=== PATIENT | female | born 1975 | race African-American/Black ===

== ENCOUNTER 2017-04-17 11:56 | Emergency (ER) | payer OTHER ==
[2017-04-17 12:07] VITALS: RESP 18
[2017-04-17] MEDS ORDERED: IPRATROPIUM/ALBUTEROL 3 ML DEYVIAL IH ONE (12:39)
[2017-04-17 12:48] LABS: % IMMATURE GRANULYOCYTES 0.9 % (0.0-1.1); ABSOLUTE IMMATURE GRANULOCYTES 0.13 10^3/uL (0.00-0.10); ADD DIFF? NO; ADD MORPH? NO; ADD SCAN? NO; ATYPICAL LYMPHOCYTE FLAG 0 (0-99); FRAGMENT RBC FLAG 0 (0-99); HEMOGLOBIN 15.7 g/dL (12.6-16.3); LEFT SHIFT FLG 0 (0-99); LIPEMIA HEMOLYSIS FLAG 90 (0-99); MEAN CELL HEMOGLOBIN CONCENTR. 34.1 g/dL (32.4-36.7); MEAN CELL VOLUME 93.7 fL (81.5-99.8); MEAN PLATELET VOLUME 9.2 fL (8.7-11.7); PLATELET CLUMPS FLAG 0 (0-99); PLATELET COUNT 365 10^3/uL (150-400); RED BLOOD CELL COUNT 4.91 10^6/uL (4.18-5.33); RED CELL DISTRIBUTION WIDTH 12.1 % (11.5-15.2)
[2017-04-17 13:03] LABS: ANION GAP 15 mEq/L (8-16); CALCIUM 9.7 mg/dL (8.5-10.4); CARBON DIOXIDE 18 mEq/l (22-31); CHLORIDE 109 mEq/L (97-110); CREATININE 0.7 mg/dL (0.6-1.0); GLOMERULAR FILTRATION RATE > 60; GLUCOSE 165 mg/dL (70-100); POTASSIUM 4.5 mEq/L (3.5-5.2); SODIUM 142 mEq/L (134-144)
--- NOTE | 2017-04-17 13:04 | EDPHY ---
H & P Stated Complaint: Sob, "lungs on fire" dry cough x 2 days Time Seen by Provider: 04/17/17 12:21 HPI/ROS: Chief Complaint: Cough, shortness of breath HPI: 41-year-old woman with a history of asthma complaining of dry cough the last couple weeks with significantly worsening over the last 2 days. She has been using her albuterol inhaler without a spacer without any relief. Is not on any other asthma medications usually. No fevers or chills. Has a burning sensation when she inhales but otherwise no chest pain. No nausea or vomiting. No recent travel. No leg pain or swelling. ROS: 10 point Review of Systems is negative except as noted in the HPI. PMH: Asthma, diabetes Social History: No smoking, no alcohol, no recreational drug use Family History: non-contributory Physical Exam: Gen: Awake, Alert, No Distress, obese HEENT: Nose: no rhinorrhea Eyes: PERRLA, EOMI Mouth: Moist mucosa Neck: Supple, no JVD Chest: nontender, breath sounds significantly diminished with expiration. No focal rales or rhonchi. Heart: S1, S2 normal, no murmur Abd: Soft, non-tender, no guarding Back: no CVA tenderness, no midline tenderness Ext: no edema, non-tender Skin: no rash Neuro: CN II-XII intact, Sensation grossly intact, Strength 5/5 in bilateral upper and lower extremities - Personal History LMP (Females 10-55): 15-21 Days Ago Current Tetanus/Diphtheria Vaccine: Unsure Current Tetanus Diphtheria and Acellular Pertussis (TDAP): Unsure - Medical/Surgical History Hx Asthma: Yes Hx Chronic Respiratory Disease: No Hx Diabetes: Yes Hx Cardiac Disease: No Hx Renal Disease: No Hx Cirrhosis: No Hx Alcoholism: No Hx HIV/AIDS: No Hx Splenectomy or Spleen Trauma: No Other PMH: NIDDM, depression, asthma - Social History Smoking Status: Never smoked Constitutional: Initial Vital Signs Temperature (C) 37.0 C 04/17/17 12:04 Heart Rate 71 04/17/17 12:04 Respiratory Rate 18 04/17/17 12:04 Blood Pressure 139/85 H 04/17/17 12:04 O2 Sat (%) 98 04/17/17 12:04 O2 Delivery Mode Room Air Allergies/Adverse Reactions: azithromycin Allergy (Verified 04/17/17 12:02) metaxalone [From Skelaxin] Allergy (Verified 04/17/17 12:02) Home Medications: Medication Instructions Recorded Byetta 04/17/17 Glyburide 04/17/17 Lovastatin 04/17/17 Zoloft 100mg (*) 04/17/17 predniSONE 60 mg PO DAILY #9 tab 04/17/17 Medical Decision Making ED Course/Re-evaluation: Patient is improved after a DuoNeb treatment. D-dimer is negative. CBC is normal. He has not have any clinical findings suggestive of pneumonia. Will discharge her with using her albuterol MDI with spacer. Will also start her on a short course of prednisone. She will follow up with primary care physician 2- 3 days for further evaluation. - Data Points Laboratory Results: Laboratory Results 04/17/17 12:37 04/17/17 12:37 04/17/17 04/17/17 04/17/17 12:37 12:37 12:37 WBC 15.24 10^3/uL H 10^3/uL (3.80-9.50) RBC 4.91 10^6/uL 10^6/uL (4.18-5.33) Hgb 15.7 g/dL g/dL (12.6-16.3) Hct 46.0 % % (38.0-47.0) MCV 93.7 fL fL (81.5-99.8) MCH 32.0 pg pg (27.9-34.1) MCHC 34.1 g/dL g/dL (32.4-36.7) RDW 12.1 % % (11.5-15.2) Plt Count 365 10^3/uL 10^3/uL (150-400) MPV 9.2 fL fL (8.7-11.7) Neut % (Auto) 68.3 % % (39.3-74.2) Lymph % (Auto) 22.9 % % (15.0-45.0) [place] % (Auto) 5.0 % % (4.5-13.0) Eos % (Auto) 2.2 % % (0.6-7.6) Baso % (Auto) 0.7 % % (0.3-1.7) Nucleat RBC Rel Count 0.0 % % (0.0-0.2) Absolute Neuts (auto) 10.41 10^3/uL H 10^3/uL (1.70-6.50) Absolute Lymphs (auto) 3.49 10^3/uL H 10^3/uL (1.00-3.00) Absolute Monos (auto) 0.76 10^3/uL 10^3/uL (0.30-0.80) Absolute Eos (auto) 0.34 10^3/uL 10^3/uL (0.03-0.40) Absolute Basos (auto) 0.11 10^3/uL H 10^3/uL (0.02-0.10) Absolute Nucleated RBC 0.00 10^3/uL 10^3/uL (0-0.01) Immature Gran % 0.9 % % (0.0-1.1) Immature Gran # 0.13 10^3/uL H 10^3/uL (0.00-0.10) D-Dimer 0.29 ug/mLFEU ug/mLFEU (0.00-0.50) Sodium 142 mEq/L mEq/L (134-144) Potassium 4.5 mEq/L mEq/L (3.5-5.2) Chloride 109 mEq/L mEq/L (97-110) Carbon Dioxide 18 mEq/l L mEq/l (22-31) Anion Gap 15 mEq/L mEq/L (8-16) BUN 15 mg/dL mg/dL (7-23) Creatinine 0.7 mg/dL mg/dL (0.6-1.0) Estimated GFR > 60 Glucose 165 mg/dL H mg/dL (70-100) Calcium 9.7 mg/dL mg/dL (8.5-10.4) Medications Given: Discontinued Medications Albuterol/Ipratropium (Duoneb) 3 ml IH EDNOW ONE Stop: 04/17/17 12:40 Last Admin: 04/17/17 12:47 Dose: 3 ml Departure - Departure Disposition: Home, Routine, Self-Care Clinical Impression: Exacerbation of asthma Condition: Good Instructions: Asthma (ED) Additional Instructions: Always use a spacer when you are using your meter dose inhaler. Take her full course of antibiotics. Follow up with your primary care physician in 3-4 days for further evaluation. Return to the emergency department for increasing chest pain, shortness of breath, fevers, chills, or any other concerns. Referrals: Zhane Beckman MD [Primary Care Provider] - As per Instructions Prescriptions: predniSONE 60 mg PO DAILY #9 tab
[2017-04-17 14:03] VITALS: BP 133/75; PULSE 87; TEMP 98.1; O2SAT 97
== END 2017-04-17 14:03 | disposition home or self-care (01) ==
DX: J45.901 Unspecified asthma with (acute) exacerbation (principal); E11.9 Type 2 diabetes mellitus without complications

== ENCOUNTER → 2017-04-26 | Outpatient (CLI) | payer OTHER | LOC: FIMAGING 13:37 | PROVIDERS: ATTEND Family Medicine | DX: J40 Bronchitis, not specified as acute or chronic (principal); J45.901 Unspecified asthma with (acute) exacerbation ==

== ENCOUNTER → 2018-03-05 | Outpatient (CLI) | payer OTHER | LOC: FIMAGING 07:57 | PROVIDERS: ATTEND Family Medicine | DX: Z12.31 Encounter for screening mammogram for malignant neoplasm of breast (principal); Z80.3 Family history of malignant neoplasm of breast ==

== ENCOUNTER 2018-04-28 21:41 | Emergency (ER) | payer OTHER ==
--- NOTE | 2018-04-28 22:06 | EDPHY ---
H & P Smoking Status: Never smoked Time Seen by Provider: 04/28/18 22:06 HPI/ROS: Chief complaint. Abdominal pain HPI. Patient is 42-year-old female presents emergency department with nausea vomiting diarrhea and left lower quadrant abdominal pain. Symptoms began at 11: 00 a.m. This morning with abdominal pain and diarrhea. She then had chills and vomiting. The left side abdominal pain is lower to mid abdomen. No radiation. It is sharp and worse with movement. Overall she feels achy. She had fever to 100 degrees. No chest pain or shortness of breath. Decreased urination but otherwise no dysuria. She has had sick contacts at a family gathering yesterday. ROS 10 systems were reviewed and negative with the exception of the elements mentioned in the history of present illness (Lobo Curiel) Past Medical/Surgical History: Endometriosis and fibroid surgery in 2008, [id number] diabetes, depression, asthma (Lobo Curiel) Social History: Single, nonsmoker, no alcohol (Lobo Curiel) Physical Exam: General Appearance: Alert well-developed female moderate distress vital signs show temp 37.2 degrees with heart rate 112. Blood pressure stable Eyes: Pupils equal and round no pallor or injection. ENT, Mouth: Mucous membranes are moist. Respiratory: There are no retractions, lungs are clear to auscultation. Cardiovascular: Regular rate and rhythm. Gastrointestinal: Abdomen is soft with tenderness in the left lower and left mid quadrant to palpation. No right-sided tenderness. No masses Neurological: Awake and alert, sensory and motor exams grossly normal. Skin: Warm and dry, no rashes. Musculoskeletal: Neck is supple nontender. Extremities symmetrical, full range of motion. Psychiatric: Patient is oriented X 3, there is no agitation. (Lobo Curiel) Constitutional: Initial Vital Signs Temperature (C) 37.2 C 04/28/18 21:49 Heart Rate 112 H 04/28/18 21:49 Respiratory Rate 18 04/28/18 21:49 Blood Pressure 138/85 H 04/28/18 21:49 O2 Sat (%) 96 04/28/18 21:49 O2 Delivery Mode Nasal Cannula O2 (L/minute) 2 Allergies/Adverse Reactions: azithromycin Allergy (Verified 04/30/18 17:56) metaxalone [From Skelaxin] Allergy (Verified 04/30/18 17:56) Home Medications: Medication Instructions Recorded Byetta 04/17/17 Glyburide 04/17/17 Lovastatin 04/17/17 Zoloft 100mg (*) 04/17/17 Jardiance 04/28/18 Ondansetron Odt [Zofran Odt] 8 mg PO Q4PRN PRN #8 tab 04/30/18 Medical Decision Making Procedures: IV normal saline with 1 L given. Zofran for nausea. Dilaudid for pain (Lobo Curiel) ED Course/Re-evaluation: Accepted patient in sign-out from Dr. Curiel pending CT scan. Introduced myself to patient prior to transport to CT scanner. Pain well controlled, nausea gone. Plan for repeat L of normal saline awaiting CT results. Discussed CT scan results with Dr. Partida. He states nothing noted to explain left-sided pain. There is some fatty infiltration of the liver. However no diverticuli, no diverticulitis, normal appendix. No bowel obstruction. On re- evaluation patient resting comfortably, receiving 2nd L of IV fluids. Heart rate below 100. Plan is to discharge home with antiemetics and close primary care follow-up. Return precautions discussed. (Aretha Nettles) Point of care testing shows normal creatinine. Blood sugar is 185 Point of care testing CBC shows a 17,000 white blood cell count with hematocrit 46 (Lobo Curiel) Differential Diagnosis: Differential diagnosis includes but is not limited to irritable bowel syndrome, gastroenteritis, diverticulitis, appendicitis, urinary tract infection, . After evaluation unclear etiology of patient's symptoms today and may represent irritable bowel syndrome or food-borne illness. No high risk features including hypotension, high fever, gastrointestinal bleeding. No specific abnormalities found on CT scan. Patient responded to treatment in the emergency department and comfortable with continued outpatient care. Stable for discharge. (Aretha Nettles) Care Turn Over: care to Dr. Nettles at 11 pm (Lobo Curiel) - Data Points Medications Given: Discontinued Medications Hydrocodone Bitart/Acetaminophen ([place] 5/325mg Prepack#6) 1 btl TAKEHOME EDNOW ONE Stop: 04/29/18 00:32 Last Admin: 04/29/18 01:01 Dose: 1 btl Hydromorphone HCl (Dilaudid) 0.5 mg IVP EDNOW ONE Stop: 04/28/18 22:23 Last Admin: 04/28/18 22:26 Dose: 0.5 mg Hydromorphone HCl (Dilaudid) 0.5 mg IVP EDNOW ONE Stop: 04/29/18 00:33 Last Admin: 04/29/18 00:57 Dose: 0.5 mg Sodium Chloride (Ns) 1,000 mls @ 0 mls/hr IV ONCE ONE PRN Reason: Wide Open Stop: 04/28/18 22:09 Last Admin: 04/28/18 22:10 Dose: 1,000 mls Sodium Chloride (Ns) 1,000 mls @ 0 mls/hr IV ONCE ONE; Wide Open PRN Reason: Protocol Stop: 04/28/18 23:28 Last Admin: 04/28/18 23:48 Dose: 1,000 mls Ondansetron HCl (Zofran) 4 mg IVP EDNOW ONE Stop: 04/28/18 22:10 Last Admin: 04/28/18 22:14 Dose: 4 mg Ondansetron HCl (Zofran Odt 4 Mg Prepack#2) 1 btl TAKEHOME EDNOW ONE Stop: 04/29/18 00:19 Last Admin: 04/29/18 01:00 Dose: 1 btl Point of Care Test Results: CBC CBC Collection Date 04/28/18 CBC Collection Time 21:55 WBC 17 RBC 5 HGB 16 HCT 46 PLT 339 Neut # 16.5 Neut 97.1 LYMPH # 0.3 LYMPH 1.6 Other WBC # 0.2 Other WBC 1.3 MCV 92 Chemistry 04/28/18 22:10 POC Sodium 136 mEq/L mEq/L (135-145) POC Potassium 4.3 mEq/L mEq/L (3.3-5.0) POC Chloride 111.0 mEq/L H mEq/L (97-110) POC Total CO2 18 mEq/L L mEq/L (22-31) POC BUN 13 mg/dL mg/dL (7-23) POC Creatinine 0.8 mg/dL mg/dL (0.6-1.0) POC Glucose 185 mg/dL H mg/dL (70-100) POC Calcium 9.6 mg/dL mg/dL (8.5-10.4) Urine Collection Date 04/28/18 Collection Time 11:05 HCG Results Negative Urine Dip Collection Date 04/28/18 Collection Time 23:05 Specific [place] (1.002-1.030) 1.030 PH (5.0-7.5) 5.5 Leukocytes (Negative) Negative Nitrites (Negative) Negative Protein (Negative) Negative Glucose (Negative) 2+ Ketones (Negative) 3+ Urobilnogen (0.2-1.0 EU) 0.2 Bilirubin (Negative) Negative Blood (Negative) 2+ Departure - Departure Disposition: Home, Routine, Self-Care Clinical Impression: Abdominal pain, Irritable bowel syndrome Condition: Good Instructions: Acute Abdominal Pain (ED) Additional Instructions: Rest over the next 2 days, use nausea medications as prescribed from the emergency department. Push fluids. Return to the emergency department or see your primary care physician if he develops high fevers, are unable to keep fluids or food down. If you have worsening diarrhea or bloody diarrhea return for re-evaluation. Referrals: Patient,NotPresent [Primary Care Provider] - As per Instructions
[2018-04-28] MEDS ORDERED: NS 1,000 ML IV ONE ×2 (22:08→23:27)
[2018-04-28] MEDS ORDERED: ONDANSETRON 4 MG/2 ML VIAL IVP ONE (22:09)
[2018-04-28] MEDS ORDERED: HYDROmorphONE/DILAUDID 2 MG/ML INJ IVP ONE (22:22)
[2018-04-28] MEDS ORDERED: IOPAMIDOL (ISOVUE-300) 100 ML BTL ONE (22:43)
[2018-04-29] MEDS ORDERED: ONDANSETRON 4MG PREPACK#2 BTL TAKEHOME ONE (00:18)
[2018-04-29] MEDS ORDERED: HYDROCOD/APAP 5/325 PREPACK#6 BTL TAKEHOME ONE (00:31)
[2018-04-29] MEDS ORDERED: HYDROmorphONE/DILAUDID 2 MG/ML INJ IVP ONE (00:32)
[2018-04-29 01:04] VITALS: BP 117/79
== END 2018-04-29 01:34 | disposition home or self-care (01) ==
LOC: CED 21:41
DX: R10.32 Left lower quadrant pain (principal); K58.0 Irritable bowel syndrome with diarrhea; E86.9 Volume depletion, unspecified; E10.9 Type 1 diabetes mellitus without complications; F32.9 Major depressive disorder, single episode, unspecified; J45.909 Unspecified asthma, uncomplicated
CPT/HCPCS: 74177-PO; 80048-PO; 96374; J1170; J2405; Q9967

== ENCOUNTER 2018-04-30 17:51 | Emergency (ER) | payer OTHER ==
[2018-04-30] MEDS ORDERED: NS 1,000 ML IV ONE ×2 (17:56→18:49)
[2018-04-30] MEDS ORDERED: ONDANSETRON DISINTEGRATING 4 MG TAB ONE (17:56)
[2018-04-30] MEDS ORDERED: ONDANSETRON 4 MG/2 ML VIAL ONE (18:05)
[2018-04-30] MEDS ORDERED: ONDANSETRON 4 MG/2 ML VIAL IVP ONE (18:06)
[2018-04-30] MEDS ORDERED: METOCLOPRAMIDE 10 MG/2 ML VIAL IVP ONE (18:22)
[2018-04-30] MEDS ORDERED: KETOROLAC 30 MG/1 ML SDV IVP ONE (18:49)
[2018-04-30 19:49] LABS: PLATELET COUNT 317 10^3/uL (150-400)
--- NOTE | 2018-04-30 20:07 | EDPHY ---
H & P Stated Complaint: n/v/d since sat seen on sat am Time Seen by Provider: 04/30/18 17:53 HPI/ROS: This patient was seen here 3 days prior to arrival with left lower quadrant crampy abdominal pain, and vomiting with mild loose stools at that time. She had a normal abdominal/pelvic CT with exception of some steatosis in the liver. She was sent home with 2 Zofran tabs but reports that she did not have a relief from 4 mg of ODT Zofran of further vomiting. She describes worsening of loose stools to seng watery diarrhea 10-15 episodes a day. Her nausea had diminished yesterday but today she had recurrence of full vomiting several times prior to arrival and is unable to tolerate fluids today. She also missed her diabetic medications today due to ongoing nausea is concerned about this. She drove herself by private vehicle here but will get a ride from her sister home. ROS: Constitutional: No fevers. HEENT: No URI symptoms Neuro: She complains of a left frontal headache that is sharp in nature 6/10 intensity associated with photophobia. The pain worsens with movement of her head and is reminiscent of migraines that she has a teenager. No focal numbness tingling weakness. No confusion. No recent head injuries. Pulmonary: No cough shortness of breath Cardiovascular: She does report some lightheadedness but no syncope or presyncope. GI: Her abdominal cramping/pain has resolved. No hematemesis. No hematochezia or dark tarry stools : No dysuria frequency urgency she has had some vaginal spotting that she attributes to her endometriosis Endocrine: No significant polyuria or polydipsia or blurred vision. She she did have a blood sugar of 100 home earlier today 10 point review of symptoms is performed and otherwise negative with exception of pertinent positives and negatives listed in HPI and ROS Source: Patient Exam Limitations: No limitations - Personal History LMP (Females 10-55): Post Menopausal Current Tetanus Diphtheria and Acellular Pertussis (TDAP): Yes Tetanus Vaccine Date: 2015 - Medical/Surgical History Hx Asthma: Yes Hx Chronic Respiratory Disease: No Hx Diabetes: Yes Hx Cardiac Disease: No Hx Renal Disease: No Hx Cirrhosis: No Hx Alcoholism: No Hx HIV/AIDS: No Hx Splenectomy or Spleen Trauma: No Other PMH: NIDDM, depression, asthma, Type 2 DM. endometriosis - Social History Smoking Status: Never smoked Alcohol Use: None Drug Use: None - Physical Exam Exam: General Appearance: Pleasant obese black female Alert, no distress. Eyes: Pupils equal and round no pallor or injection. ENT, Mouth: Mucous membranes dry. Respiratory: There are no retractions, lungs are clear to auscultation. Cardiovascular: Regular rate and rhythm. No murmur gallop rub Gastrointestinal: Abdomen is soft and nontender, no masses, bowel sounds normal. Neurological: GCS 15 Skin: Warm and dry, no rashes. Musculoskeletal: Neck is supple nontender. Extremities are symmetrical, full range of motion. Psychiatric: Mood and affect are normal DIFFERENTIAL DIAGNOSIS: After history and physical exam differential diagnosis was considered for gastroenteritis, dehydration, UTI, hepatitis Constitutional: Initial Vital Signs Temperature (C) 37.2 C 04/30/18 17:56 Heart Rate 60 04/30/18 17:56 Respiratory Rate 18 04/30/18 17:56 Blood Pressure 145/74 H 04/30/18 17:56 O2 Sat (%) 97 04/30/18 17:56 O2 Delivery Mode Room Air Allergies/Adverse Reactions: azithromycin Allergy (Verified 04/30/18 17:56) metaxalone [From Skelaxin] Allergy (Verified 04/30/18 17:56) Home Medications: Medication Instructions Recorded Byetta 04/17/17 Glyburide 04/17/17 Lovastatin 04/17/17 Zoloft 100mg (*) 04/17/17 Jardiance 04/28/18 Ondansetron Odt [Zofran Odt] 8 mg PO Q4PRN PRN #8 tab 04/30/18 Medical Decision Making ED Course/Re-evaluation: IV normal saline bolus x2 L Reglan Benadryl and Toradol with complete relief of headache. Patient did not have any diarrhea while here in the emergency department. Her nausea also resolved with the above treatment. Review of her labs reveals an essentially normal CMP exception of slightly elevated glucose the 120s, normal CBC, UA shows only hematuria attributable to her vaginal spotting. Discussion: Patient with was likely a viral gastroenteritis with belly pain has resolved for since her prior for visit. Her emesis was uncontrolled on a low dose of Zofran. Given her weight-under knee kg thinks she warrants an 8 mg ODT dosed and counseled regarding this for any subsequent nausea vomiting home. Also advised her to start Imodium [id number]. She will return if she has any worsening despite the treatment plan. - Data Points Laboratory Results: Laboratory Results 04/30/18 18:13 1218 [id number] 18:28 18:13 WBC 6.92 10^3/uL 10^3/uL (3.80-9.50) RBC 4.80 10^6/uL 10^6/uL (4.18-5.33) Hgb 14.8 g/dL g/dL (12.6-16.3) Hct 44.6 % % (38.0-47.0) MCV 92.9 fL fL (81.5-99.8) MCH 30.8 pg pg (27.9-34.1) MCHC 33.2 g/dL g/dL (32.4-36.7) RDW 12.3 % % (11.5-15.2) Plt Count 317 10^3/uL 10^3/uL (150-400) MPV 10.1 fL fL (8.7-11.7) Neut % (Auto) 58.6 % % (39.3-74.2) Lymph % (Auto) 27.9 % % (15.0-45.0) [place] % (Auto) 9.2 % % (4.5-13.0) Eos % (Auto) 2.7 % % (0.6-7.6) Baso % (Auto) 0.7 % % (0.3-1.7) Nucleat RBC Rel Count 0.0 % % (0.0-0.2) Absolute Neuts (auto) 4.05 10^3/uL 10^3/uL (1.70-6.50) Absolute Lymphs (auto) 1.93 10^3/uL 10^3/uL (1.00-3.00) Absolute Monos (auto) 0.64 10^3/uL 10^3/uL (0.30-0.80) Absolute Eos (auto) 0.19 10^3/uL 10^3/uL (0.03-0.40) Absolute Basos (auto) 0.05 10^3/uL 10^3/uL (0.02-0.10) Absolute Nucleated RBC 0.00 10^3/uL 10^3/uL (0-0.01) Immature Gran % 0.9 % % (0.0-1.1) Immature Gran # 0.06 10^3/uL 10^3/uL (0.00-0.10) POC Sodium 142 mEq/L mEq/L (135-145) POC Potassium 4.0 mEq/L mEq/L (3.3-5.0) POC Chloride 110.0 mEq/L mEq/L (97-110) POC Total CO2 23 mEq/L mEq/L (22-31) POC BUN 9 mg/dL mg/dL (7-23) POC Creatinine 0.6 mg/dL mg/dL (0.6-1.0) POC Glucose 121 mg/dL H mg/dL (70-100) POC Calcium 9.5 mg/dL mg/dL (8.5-10.4) POC Total Bilirubin 0.6 mg/dL mg/dL (0.1-1.4) POC AST 21 IU/L IU/L (14-46) POC ALT 21 IU/L IU/L (9-52) POC Alk Phosphatase 62 IU/L IU/L (38-126) POC Total Protein 7.8 g/dL g/dL (6.3-8.2) POC Albumin 3.8 g/dL g/dL (3.5-5.0) Medications Given: Discontinued Medications Diphenhydramine HCl (Benadryl Injection) 50 mg IVP EDNOW ONE Stop: 04/30/18 18:24 Last Admin: 04/30/18 18:44 Dose: 50 mg Sodium Chloride (Ns) 1,000 mls @ 0 mls/hr IV EDNOW ONE; Wide Open PRN Reason: Protocol Stop: 04/30/18 17:57 Last Admin: 04/30/18 18:19 Dose: 1,000 mls Sodium Chloride (Ns) 1,000 mls @ 0 mls/hr IV ONCE ONE; Wide Open PRN Reason: Protocol Stop: 04/30/18 18:50 Last Admin: 04/30/18 19:17 Dose: 1,000 mls Ketorolac Tromethamine (Toradol) 30 mg IVP EDNOW ONE Stop: 04/30/18 18:50 Last Admin: 04/30/18 19:07 Dose: 30 mg Metoclopramide HCl (Reglan Injection) 5 mg IVP EDNOW ONE Stop: 04/30/18 18:23 Last Admin: 04/30/18 18:48 Dose: 5 mg Ondansetron HCl (Zofran) 4 mg IVP EDNOW ONE Stop: 04/30/18 18:07 Last Admin: 04/30/18 18:20 Dose: 4 mg Point of Care Test Results: Chemistry 04/30/18 18:28 POC Sodium 142 mEq/L mEq/L (135-145) POC Potassium 4.0 mEq/L mEq/L (3.3-5.0) POC Chloride 110.0 mEq/L mEq/L (97-110) POC Total CO2 23 mEq/L mEq/L (22-31) POC BUN 9 mg/dL mg/dL (7-23) POC Creatinine 0.6 mg/dL mg/dL (0.6-1.0) POC Glucose 121 mg/dL H mg/dL (70-100) POC Calcium 9.5 mg/dL mg/dL (8.5-10.4) POC Total Bilirubin 0.6 mg/dL mg/dL (0.1-1.4) POC AST 21 IU/L IU/L (14-46) POC ALT 21 IU/L IU/L (9-52) POC Alk Phosphatase 62 IU/L IU/L (38-126) POC Total Protein 7.8 g/dL g/dL (6.3-8.2) POC Albumin 3.8 g/dL g/dL (3.5-5.0) Urine Collection Date 04/30/18 Collection Time 20:15 HCG Results Negative Urine Dip Collection Date 04/30/18 Collection Time 20:15 Specific [place] (1.002-1.030) 1.010 PH (5.0-7.5) 6.5 Leukocytes (Negative) Negative Nitrites (Negative) Negative Protein (Negative) Negative Glucose (Negative) 2+ Ketones (Negative) 1+ Urobilnogen (0.2-1.0 EU) 0.2 Bilirubin (Negative) Negative Blood (Negative) 2+ Departure - Departure Disposition: Home, Routine, Self-Care Clinical Impression: Gastroenteritis, Dehydration Acute headache Qualifiers: Headache type: unspecified Intractability: not intractable Qualified Code(s): R51 - Headache Condition: Good Instructions: Gastroenteritis (ED), Acute Headache (ED) Additional Instructions: Diagnoses:. Gastroenteritis 2. Acute headache 2. Dehydration Plan: Home-drink plenty fluids Light diet to feel improved Zofran 8 mg under the tongue for nausea vomiting if needed Imodium [id number] if needed for diarrhea While primary care physician for any ongoing symptoms despite treatment plan Return to emergency department for any worsening despite treatment plan Referrals: Unknown,Unknown [Unknown] - As per Instructions Shyam Malloy DO [Doctor of Osteopathy] - As per Instructions Prescriptions: Ondansetron Odt [Zofran Odt] 8 mg PO Q4PRN PRN #8 tab PRN Reason: Vomiting
[2018-04-30 20:24] VITALS: BP 132/74
== END 2018-04-30 20:31 | disposition home or self-care (01) ==
LOC: CED 17:51
DX: K52.9 Noninfective gastroenteritis and colitis, unspecified (principal); R51 Headache; E86.0 Dehydration; E10.9 Type 1 diabetes mellitus without complications
CPT/HCPCS: 80053-PO; 96374; J1200; J1885; J2405; J2765